=== PATIENT | male | born 1945 | race Caucasian/White ===

== ENCOUNTER → 2019-12-08 14:06 | Outpatient (BNVA) | payer MEDICARE, SELFPAY | PROVIDERS: Family Provider Family Medicine; PCP Family Medicine; Referring Provider Internal Medicine; Visit Provider Nurse Practitioner Family | DX: N40.1 Benign prostatic hyperplasia with lower urinary tract symptoms (principal) | CPT/HCPCS: 81001 ==

== ENCOUNTER → 2020-01-05 10:05 | Outpatient (BNVA) | payer MEDICARE, SELFPAY | PROVIDERS: Family Provider Family Medicine; PCP Internal Medicine; Visit Provider Urology | DX: N40.1 Benign prostatic hyperplasia with lower urinary tract symptoms (principal); R39.15 Urgency of urination | CPT/HCPCS: 81001 ==

== ENCOUNTER → 2020-03-02 10:16 | Outpatient (BNVA) | payer MEDICARE, SELFPAY | PROVIDERS: Family Provider Family Medicine; Visit Provider Urology | DX: N40.1 Benign prostatic hyperplasia with lower urinary tract symptoms (principal); R33.8 Other retention of urine | CPT/HCPCS: 81001 ==

== ENCOUNTER → 2020-03-09 10:12 | Outpatient (BNVA) | payer OTHER, SELFPAY | PROVIDERS: Family Provider Family Medicine; Visit Provider Urology | DX: Z11.59 Encounter for screening for other viral diseases (principal) | CPT/HCPCS: 87635 ==

== ENCOUNTER 2020-03-12 16:09 | Observation (INO) | payer OTHER, SELFPAY ==
[2020-03-09 11:28] VITALS: BMI 27.1
--- NOTE | 2020-03-09 11:35 | ECG_ITS ---
[facility] Test Date: 2020-03-09 Pat Name: Sai Medina Department: Room: Gender: Male Public Health Advisor: : [id number] Requested By: Lidia Kam Order Number: [id number] Darnell MD: Reggie Rogers M.D. Measurements Intervals [place] Rate: 46 P: 24 DC: 170 QRS: -22 QRSD: 105 T: 15 QT: 420 QTc: 369 Interpretive Statements SINUS BRADYCARDIA BORDERLINE LEFT AXIS DEVIATION [QRS AXIS < -20] MODERATE VOLTAGE CRITERIA FOR LVH, CONSIDER NORMAL VARIANT [MEETS CRITERIA IN ONE OF: R(aVL), S(V1), R(V5), R(V5/V6)+S(V1)] No previous ECG available for comparison Electronically Signed On 03-10-2020 21:37:15 CDT by Reggie Rogers M.D. [id number]
--- NOTE | 2020-03-09 11:59 | ANES.PREANE2 ---
Pre-Anesthetic Assessment Pre-Anesthetic Assessment: Height/Weight: Height 1.7 m Weight 78.471 kg Preop Diagnosis: Refractory BPH/obstruction Proposed Procedure: Operation Date: 03/12/20 13:00 Proposed Procedures p Transurethral Resection Of Prostate 93210 N40.1(Not Applicable) - Jj Taylor MD s Cystoscopy(Not Applicable) - Jj Taylor MD Familial anesthetic complications: none Social: Social History: No alcohol and No tobacco Exam: Pre-Anes Outpt Exam: alert, oriented x 3, clear to auscultation bilaterally and regular rate & rhythm Airway: Cervical ROM: WNL MP: 2 Dentition: Partials CV/HEM: CV/HEM: CAD (stent in 2001), HTN and PR Comments: can achieve 4 METS, can walk 2 miles on treadmill on 10% incline Neuropsych: Neuropsych: None reported Anesthetic Plan: ASA status: 3 Anesthesia: General Risk of > 500 ml blood loss (7ml/kg in children): No PFSH Anesthesia PFSH: Medical History ASHD (arteriosclerotic heart disease) BPH loc w urin obs/LUTS Chest pain Dyslipidemia Essential hypertension History of chronic prostatitis Remote episode with good response to single course of antibiotic therapy. Prostatic hypertrophy Urgency of urination Surgical History History of prostate biopsy 2007 negative pathology. Follow-up PSA is normal S/P angioplasty with stent Family History Mother , AT AGE 82 Diabetes CHF (congestive heart failure) Father , AT AGE 58 Suicide Other CAD (coronary artery disease) Social History Smoking and tobacco status: former smoker Alcohol intake: current Alcohol intake frequency: few times a week Alcohol type: beer Household members: spouse Marital status: service: Yes branch: [employer] branch details: 2 YEARS Current occupational status: retired Current occupation: [employer] History of recent travel: No Current gender identity: Male Anna/Nondenominational: Pentecostal Data Anesthesia Cardiac Studies: No Data to Display
[2020-03-12] VITALS (21 sets, daily range): BP systolic 95–167; BP diastolic 60–85; PULSE 41–74; RESP 14–19; TEMP 36.6–37.1; O2SAT 88–99
[2020-03-12] MEDS: sodium chloride 0.9% 1,000 ML 30 ML IV (11:43)
--- NOTE | 2020-03-12 12:09 | ANES.PREANE2 ---
Pre-Anesthetic Assessment Pre-Anesthetic Assessment: Height/Weight: Height 1.7 m Weight 78.471 kg Temp Pulse Resp BP Pulse Ox 97.9 F 53 L 18 167/85 97 03/12/20 11:30 03/12/20 11:30 03/12/20 11:30 03/12/20 11:30 03/12/20 11:30 Preop Diagnosis: Refractory BPH/obstruction Proposed Procedure: Operation Date: 03/12/20 13:00 Proposed Procedures p Transurethral Vaporization Of Prostate 35875 N40.1(Not Applicable) - Jj Taylor MD s Cystoscopy(Not Applicable) - Jj Taylor MD Was Beta Shanta taken within 24 hours: Yes Last intake: Intake Last Liquid Date 03/12/20 Last Liquid Time 06:00 Last Solid Date 03/12/20 Last Solid Time 00:00 Social: Social History: No alcohol and No tobacco Exam: Pre-Anes Outpt Exam: alert, oriented x 3, clear to auscultation bilaterally and regular rate & rhythm Airway: Submandibular: WNL Cervical ROM: WNL MP: 2 Dentition: Chipped Additional comments: Missing lower incisors Pulmonary: Pulmonary: None reported CV/HEM: CV/HEM: HTN : Comments: BPH Hepatic: Hepatic: None reported GI: GI: None reported Metabolic: Metabolic: Hyperlipidemia Musc/skel: Musc/skel: None reported Neuropsych: Neuropsych: None reported Anesthetic Plan: ASA status: 2 Anesthesia: General Meds/Allergies Current Medications: Current Medications Generic Name Dose Route Start Last Admin Trade Name Freq PRN Reason Stop Dose Admin Sodium Chloride 1,000 mls @ 30 ml s/hr 03/12/20 11:00 03/12/20 11:43 Sodium Chloride 0.9% IV 03/13/20 10:59 30 mls/hr .Q24H ASIA Administration PFSH Anesthesia PFSH: Medical History ASHD (arteriosclerotic heart disease) BPH loc w urin obs/LUTS Chest pain Dyslipidemia Essential hypertension History of chronic prostatitis Remote episode with good response to single course of antibiotic therapy. Prostatic hypertrophy Urgency of urination Surgical History History of prostate biopsy 2007 negative pathology. Follow-up PSA is normal S/P angioplasty with stent Family History Mother , AT AGE 82 Diabetes CHF (congestive heart failure) Father , AT AGE 58 Suicide Other CAD (coronary artery disease) Social History Smoking and tobacco status: former smoker Alcohol intake: current Alcohol intake frequency: few times a week Alcohol type: beer Household members: spouse Marital status: service: Yes branch: [employer] branch details: 2 YEARS Current occupational status: retired Current occupation: [employer] History of recent travel: No Current gender identity: Male Anna/Advent: Congregational Data Anesthesia Cardiac Studies: No Data to Display
--- NOTE | 2020-03-12 13:21 | P.HPUD_ITS ---
Surgery/Procedure H&P Update DATE OF PROCEDURE: March 12, 2020 DATE H&P PERFORMED: 03/02/20 H&P UPDATE INFORMATION: I have reviewed H&P completed within last 30 days, I have examined patient prior to procedure, No changes to prior documentation and H&P is in [facility] on date indicated PREOP DIAGNOSIS: Refractory BPH/obstruction PLANNED PROCEDURE: Operation Date: 03/12/20 13:00 Proposed Procedures p Transurethral Vaporization Of Prostate 64769 N40.1(Not Applicable) - Jj Taylor MD s Cystoscopy(Not Applicable) - Jj Taylor MD
--- NOTE | 2020-03-12 13:21 | P.OP_ITS ---
Operative Report Date of procedure: March 12, 2020 Pre-op Diagnosis: Refractory BPH/obstruction Post-op diagnosis: same Procedure Done: 1. Cystoscopy, transurethral vaporization of the prostate Surgeon: Claudia Anesthesia: General Estimated blood loss: 100 cc Urine output: Not measured Complications: None Findings: Lateral lobe hypertrophy bilaterally. Trabeculated bladder. Wide open at the completion of the procedure with hemostasis confirmed Condition: stable Disposition: PACU Brief History: Sai is a very pleasant 74-year-old white male with a longstanding history of BPH/obstructive symptoms on dual medical therapy with minimal improvement over time. Both irritative and obstructive symptoms. Emptied his bladder well and a trial of OAB medications was conducted but made it harder for him to void. Ultimately because of the impact on his quality of life he elected to proceed with TURP/TUVP in lieu of medical therapy long-term in the hope of significant improvement in his baseline voiding dynamics. Procedure: After routine preoperative evaluation examination and obtaining of informed consent he was taken to the operating suite on 03/12/2020 where general anesthesia was administered without difficulty after appropriate timeout was performed, SCDs confirmed to be functioning, preoperative antibiotics administered, beta-charis protocol confirmed. Prepped and draped in usual sterile fashion in dorsolithotomy position pain careful attention to avoiding pressure points. 21 Malaysian cystoscope with 30 degree lens was introduced into the urethral meatus and advanced into the bladder under videoscopy. Bladder was systematically examined showing lateral lobe hypertrophy, clearly identifiable ureteral orifices well away from the bladder neck, moderate to severe trabeculation. No mucosal abnormalities were identified. The urethra was then calibrated with Ethan sounds and easily accommodated 30 Malaysian. 2% lidocaine jelly was instilled into the urethra and a 25 Malaysian continuous flow resectoscope sheath with visual obturator in place was advanced into the bladder without difficulty. The supersect loop was utilized initially with the bipolar gyrus system to begin resection. The mucosa was very friable and a lot of time was spent cauterizing after the initial resection and for that reason the button probe was then employed and was utilized for the rest of the procedure. This change signi ficantly improved hemostasis during the procedure. Initial vaporization was begun at the 12 o'clock position from the bladder neck out to the verumontanum but not distal to it. It was then directed from the 12:00 to the 5 o'clock position in the same longitudinal extent down to surgical capsule. Resection was then directed from 12:00 to 7 o'clock position. He had a high bladder neck but no large lobe. A deep trough was made at the 6 o'clock position after confirming well away from the orifices. This was taken down to the circular fibers of the bladder neck and this helped Spring open the bladder neck substantially. The floor the prostate was then resected. All chips were evacuated from the bladder. There remained some adenomatous tissue at the level of the verumontanum and this was carefully vaporized as well. Meticulous hemostasis was confirmed. There was no specimen sent due to vaporization being the tool utilized. The orifices were confirmed uninvolved in the resection and the tissue distal to the verumontanum was as well undisturbed Bladder was drained with a 22 Malaysian three-way Bolton catheter with 30 cc placed in the balloon and light CBI initiated. Efflux was clear. Tolerated procedure well without complications and was awakened in the operating room and returned to the recovery room in stable condition. PLANS: 1. Observe overnight. Due to the friable nature of the tissue consideration for discharge with catheter will be made.
[2020-03-12] MEDS: levofloxacin-dextrose 5 % 500 MG/100 ML PREMIX 100 MG IV (13:22)
[2020-03-12] MEDS: lidocaine 2% Urojet 20 mL TOPICAL (14:07)
--- NOTE | 2020-03-12 15:32 | SUR.PHASEI ---
PT AWAKES TO VOICE, ORAL AIRWAY OUT PT QUICKLY BACK TO SLEEP DIDI STRAP TO LT THIGH WITH NS CBI INFUSING AT MOD RATE CLEAR URINE NOTED BENOIT BAG WITH LT PINK URINE
[2020-03-12] MEDS: fentaNYL 50 mcg/mL INJ 2mL IVP (15:37)
--- NOTE | 2020-03-12 16:02 | SUR.PHASEI ---
1552 PT RECOVERED AND OUT OF PHASE ONE, PT ALERT TAKING ICE CHIPS PT NOW HELD FOR BED ON FLOOR.
[2020-03-12] MEDS: lactated ringers 1,000 ML 50 ML IV (17:48)
[2020-03-12] MEDS: finasteride 5 mg Tablet PO (18:03)
[2020-03-12] MEDS: tamsulosin 0.4 mg Capsule PO (18:03)
[2020-03-12] MEDS: docusate sodium 100 mg Capsule PO (18:06)
[2020-03-12] MEDS: cetylpyridinium Lozenge 1 EACH MUCOUS MEM (18:06)
[2020-03-13] VITALS: BP 120/69; PULSE 72; RESP 16; TEMP 36.9; O2SAT 94
[2020-03-13 04:00] VITALS: BP 110/67; PULSE 70; RESP 16; TEMP 36.7; O2SAT 94
[2020-03-13 05:33] LABS: Basophils % 0.1 %; Hematocrit 40.4 % (42.0-52.0); Hemoglobin 13.8 g/dL (11.7-16.6); Lymphocytes # 0.9 10^3/uL (0.8-4.8); Lymphocytes % 6.7 %; Mean Corpuscular HGB Conc 34.2 g/dL (30.0-36.0); Mean Corpuscular Hemoglobin 30.4 pg (28.0-34.0); Mean Platelet Volume 11.2 fL (7.4-10.4); Monocytes # 0.6 10^3/uL (0.2-0.9); Monocytes % 4.1 %; Neutrophils # 12.42 10^3/uL (1.8-7.7); Neutrophils % 88.7 %; Nucleated Red Blood Cells % 0 %; Platelet Count 173 10^3/cmm (130-400); Red Blood Count 4.54 10^6/uL (4.1-5.3); Red Cell Distribution Width 12.2 % (12.1-15.1)
[2020-03-13 06:02] LABS: Anion Gap 15.1 (5-19); Blood Urea Nitrogen 15 mg/dL (8-23); Calcium 9.4 mg/dL (8.5-10.5); Carbon Dioxide 22 mmol/L (22-29); Chloride 105 mmol/L (98-107); Glucose 142 mg/dL (65-115); Osmolality Calculated 289 mOsm/kg (285-295); Potassium 4.1 mmol/L (3.5-5.1); Sodium 138 mmol/L (136-145)
--- NOTE | 2020-03-13 07:32 | P.PN_ITS ---
Subjective Subjective: Interval history: Urology follow-up, postoperative day #1: No new complaints. Denies any additional needs. Denies chest pain shortness of breath. Tolerating the catheter reasonably well. Has required CBI over the night and continues to this morning. Running at a moderate pace only. With that pace urine is pink. No manual irrigation has been required overnight. Based on current status of urine, the increased vascularity of the prostate demonstrated intraoperatively, and the size of the prostate I recommended continuing his catheter for now with CBI. I will reassess later today to make a decision whether to stop the CBI and potentially discharge with a catheter in place or continue as doing and change to inpatient status for an additional night of care. Labs reviewed. Hemoglobin is 14. Electrolytes normal. Medications: Reviewed: Yes Vitals/I&O/Wt Last Vital Signs Temp 98.1 F 03/13/20 04:00 Pulse 70 03/13/20 04:00 Resp 16 03/13/20 04:00 BP 110/67 03/13/20 04:00 Pulse Ox 94 03/13/20 04:00 03/12/20 03/13/20 03/13/20 22:59 06:59 14:59 Intake Total 1590 / 1690 480 / 480 Output Total 8550 / 8550 Balance -6960 / -6860 480 / 480 Physical Exam Const: COMMON NORMALS: no acute distress, alert and well nourished GENERAL APPEARANCE: well kempt and well developed ORIENTATION/CONSCIOUSNESS: not confused Resp: COMMON NORMALS: normal respiratory effort EFFORT & INSPECTION: No labored and No Actively coughing : OTHER: Urine is clear to pink with low flow CBI. Neuro: SENSORIUM/ORIENTATION: Yes alert Psych: COMMON NORMALS: mental status grossly normal APPEARANCE: Yes grossly normal and Yes well kempt ATTITUDE: Yes calm and Yes engaged Urinary Catheter Management^: 3-way Urethral CBI: Cath Placed During This Visit: yes Reason for Continuing Indwelling Catheter: Other Urinary Catheter Date of Insertion: 03/12/20 Urinary Catheter Time of Insertion: 15:02 Data : 03/13/20 04:31 03/13/20 04:31 A&P Assessment and plan (1) BPH loc w urin obs/LUTS: Status: Acute Additional A&P Information Postop hematuria. Still requiring CBI. Continue CBI today and reassess later for possible discharge with Bolton catheter in place. Attestations Medical Necessity Statement*: Still requiring CBI postop TURP. Coding Level of Care Code Acute Professional Poker Player for Haile Fwlauren Diagnoses BPH loc w urin obs/LUTS N40.1
[2020-03-13] MEDS: atorvastatin 40 mg Tablet PO (08:25)
[2020-03-13] MEDS: lisinopril 20 mg Tablet 40 MG PO (08:25)
[2020-03-13] MEDS: docusate sodium 100 mg Capsule PO (08:26)
[2020-03-13] MEDS: finasteride 5 mg Tablet PO (08:26)
[2020-03-13] MEDS: tamsulosin 0.4 mg Capsule PO (08:26)
[2020-03-13] MEDS: metoprolol succinate ER (24 HR) 25 mg Tablet PO (08:26)
[2020-03-13 11:29] VITALS: BP 136/71; PULSE 62; RESP 18; TEMP 37.1; O2SAT 96
--- NOTE | 2020-03-13 13:28 | PC.CHAP ---
Pastoral Care Encounter/Spiritual Assessment Type of Contact [] Declined application administrator visit [] Patient/Family/Request visit [] Outpatient visit [] Follow-up visit [] Physician referral [] Code/Alert [X] Routine visit [] Staff referral [] Actively dying [] Patient sleeping [] Family support [] [] Out of room [] Palliative care [] [] Receiving care in room [] Pre-surgical visit [] Trauma [] Long length of stay [] ICU visit [] Other: Relational/Emotional Strength [] Patient feels connected with others/family/visitors/staff [] Distress [] Loneliness/isolation [] Abandonment Spirituality of Patient [] Person of Anna [] Attends Mandaen of their Anna [] Believes in Prayer [] Reads Bible or Judaism materials [] There are Spiritual issues to be addressed Adding Machine Operator Interventions [] Prayer [] Active listening [] Non-anxious presence [] Spiritual/emotional support [] Crisis/trauma care [] Spiritual counseling [] Bereavement support [] Provided bereavement packet [] Provided Bible/devotional materials [] Provided toy/stuffed animal, coloring book to patient or family member [] Provided Communion [] Anointing/[place] [] Salvation [] Completed spiritual assessment [] Other: Impact on Illness or Injury [] Angry [] Fearful [] Anxious [] Often cries [] Exhaustion [] Unable to work [] Unable to attend taoism [] Unable to walk/stand [] Unable to read [] Unable to drive [] Unable to eat/drink [] Unable to sleep [] Unable to be with family [] Patient intubated [] Other: Summary Time spent with patient
[2020-03-13 14:40] VITALS: BP 117/67; PULSE 67; RESP 18; TEMP 37.1; O2SAT 95
--- NOTE | 2020-03-13 16:19 | PM.DCS ---
Discharge Providers Date of Admission: 03/12/20 16:09 Date of Discharge: March 13, 2020 Attending Provider at Admission: Jj Taylor MD Attending Provider at Discharge: Jj Taylor MD Primary Care Provider: [facility] Diagnoses at Discharge Discharge Diagnosis (1) BPH loc w urin obs/LUTS: Status: Acute Reason for Visit Reason for Visit: Benign prostate hyperplasia/LUTS Hospital Course Hospital Course: Admitted on the day of the procedure which went well. He had a huge prostate with mostly lateral lobe hypertrophy. Prostate was very vascular. Was put on observation status postop with CBI. CBI was slowly weaned off and his urine remained clear. He was felt to be a good candidate for further convalescence at home by the afternoon of postoperative day #1 and he was discharged with a Bolton catheter in place. Reviewed extensively the importance of not straining or lifting and to continue significant fluid intake to help avoid significant bleeding or clots. We will plan on a voiding trial on 03/16/2020 with [facility] instruction as well. Discharged in stable condition the care of his family Physical Exam Const: COMMON NORMALS: no acute distress, alert and well nourished GENERAL APPEARANCE: well kempt and well developed ORIENTATION/CONSCIOUSNESS: not confused Resp: COMMON NORMALS: normal respiratory effort EFFORT & INSPECTION: No labored and No Actively coughing Neuro: COMMON NORMALS: no focal motor deficits SENSORIUM/ORIENTATION: Yes alert Psych: COMMON NORMALS: mental status grossly normal APPEARANCE: Yes grossly normal and Yes well kempt ATTITUDE: Yes calm and Yes engaged Urinary Catheter Management^: 3-way Urethral CBI: Cath Placed During This Visit: yes Reason for Continuing Indwelling Catheter: Other Urinary Catheter Date of Insertion: 03/12/20 Urinary Catheter Time of Insertion: 15:02 Discharge Data Data Completed and Pending: Labs from last 24 hours 03/13/20 03/13/20 04:31 04:31 WBC 14.0 H RBC 4.54 Hgb 13.8 Hct 40.4 L MCV 89.0 MCH 30.4 MCHC 34.2 RDW 12.2 Plt Count 173 MPV 11.2 H Neut % (Auto) 88.7 Lymph % (Auto) 6.7 [place] % (Auto) 4.1 Eos % (Auto) 0.0 Baso % (Auto) 0.1 Neut # (Auto) 12.42 H Lymph # (Auto) 0.9 [place] # (Auto) 0.6 Eos # (Auto) 0.0 Baso # (Auto) 0.0 Nucleated RBC % (a uto) 0 Nucleated RBCs # 0.0 Sodium 138 Potassium 4.1 Chloride 105 Carbon Dioxide 22 Anion Gap 15.1 BUN 15 Creatinine 0.8 GFR Calculation Not Reportable Glucose 142 H Calculated Osmolal ity 289 Calcium 9.4 Vitals: Last Vital Signs Temp 98.8 F 03/13/20 14:40 Pulse 67 03/13/20 14:40 Resp 18 03/13/20 14:40 BP 117/67 03/13/20 14:40 Pulse Ox 95 03/13/20 14:40 Discharge Plan Discharge Patient Disposition: Home Condition: Stable Prescriptions: New levofloxacin 250 mg tablet 250 mg PO DAILY Qty: 5 RF: 0 Continued rosuvastatin [Crestor] 10 mg tablet 10 mg PO QDAY RF: 0 nitroglycerin [Nitrostat] 0.4 mg tablet, sublingual 0.4 mg SUBLINGUAL Q5M PRN (Reason: Chest Pain) RF: 0 lisinopril 40 mg tablet 40 mg PO QDAY RF: 0 metoprolol succinate [Toprol XL] 25 mg tablet extended release 24 hr 25 mg PO QDAY RF: 0 triamterene-hydrochlorothiazid 37.5-25 mg tablet 1 tab PO QAM RF: 0 finasteride 5 mg tablet 5 mg PO QDAY RF: 0 tamsulosin [Flomax] 0.4 mg capsule 0.4 mg PO BID Qty: 180 RF: 3 Held aspirin [Adult Low Dose Aspirin] 81 mg tablet,delayed release (DR/EC) 81 mg PO QDAY RF: 0 Hold Instructions: Resume on 03/26/20. Discharge Orders: Discharge Order (Routine); Ordered 03/13/20 Ordered By: Jj Taylor Referrals: Jj Taylor MD [Physician] - 03/16/20 (Voiding trial and a CIC instruction.) Discharge Diet: Usual diet Discharge Activity: Limit activity as instructed Activity Restrictions/Additional Instructions: 1. Please remain sedentary, drink a lot of fluid, and avoid straining until the catheter is been removed. 2. Call for any concerns or questions. I can be reached through the hospital slice plug cutter operator helper [phone] 3. We will plan on removing the catheter on Leticia afternoon. We will do a voiding trial and trained you on self-catheterization just in case he had difficulty voiding at home. Discharge Attestations Time Spent in Discharge Care*: less than 30 min Quality Metrics Clinical Quality Measures During this hospital stay, did patient experience: None Coding Level of Care Code Acute Cash Specialist for Taviag Fwd Diagnoses BPH loc w urin obs/LUTS N40.1
== END 2020-03-13 17:50 | disposition home or self-care (01) ==
LOC: MEDSURG 16:09
PROVIDERS: Admitting Provider Urology; Visit Provider Urology
PROC: 0VT08ZZ Resection of Prostate, Via Natural or Artificial Opening Endoscopic (ICD-10-PCS; CPT 52601; principal; 2020-03-12 13:00)
PROC: 0TJB8ZZ Inspection of Bladder, Via Natural or Artificial Opening Endoscopic (ICD-10-PCS; CPT 52000; 2020-03-12 13:00)
DX: N40.1 Benign prostatic hyperplasia with lower urinary tract symptoms (principal); N13.8 Other obstructive and reflux uropathy; I10 Essential (primary) hypertension; I25.2 Old myocardial infarction; E87.5 Hyperkalemia; Z95.5 Presence of coronary angioplasty implant and graft; Z82.49 Family history of ischemic heart disease and other diseases of the circulatory system; Z87.891 Personal history of nicotine dependence
CPT/HCPCS: 52601; 12345; 36415; 80048; 85025; 93005; G0378; J1100; J1956; J2405; J2704; J2710; J3010; J3490; J7030

== ENCOUNTER → 2020-07-15 10:57 | Outpatient (BNVA) | payer MEDICARE, SELFPAY | PROVIDERS: PCP Family Medicine; Visit Provider Nurse Practitioner Family | DX: N40.1 Benign prostatic hyperplasia with lower urinary tract symptoms (principal); N41.1 Chronic prostatitis | CPT/HCPCS: 81003 ==

== ENCOUNTER 2020-11-16 07:49 | Outpatient (CLI) | payer OTHER, MEDICARE, SELFPAY ==
--- NOTE | 2020-11-16 08:00 | CT_ITS ---
WS: [id number] CT ABDOMEN PELVIS TECHNIQUE: Noncontrast CT of the abdomen and contrast-enhanced CT of the abdomen and pelvis with ynes nal and sagittal reformatted images. CLINICAL INFORMATION: GROSS HEMATURIA COMPARISON: None. DLP: 2229.[address] scans at [facility] use at least one of these dose optimization techniques: automat ed exposure control; mA and/or kV adjustment per patient size (includes targeted exams where dose is matched to clinical indication); or iterative reconstruction. FINDINGS: Noncontrast kidneys are normal. No obstructing renal or ureteral calculi. Normal bilateral renal pare nchymal enhancement. Normal corticomedullary and nephrographic enhancement. Normal bilateral ureteral excretion with contrast visualized in the bladder. Small left renal cysts. No filling defects visual ized in the renal pelvis bilaterally. Markedly enlarged prostate measuring 7.0x6.0 cm with indentation on the bladder and associated bladde r wall thickening dorsally. Recommend correlation PSA. Small 11 mm cyst or cavernous hemangioma in the left hepatic lobe. Normal portal vein and splenic vei n. Normal gallbladder. Small esophageal hiatal hernia. Normal spleen. No evidence of small or large b owel obstruction. Lung bases are well aerated. Normal pancreatic enhancement. Normal caliber abdomina l aorta. Aortic calcification. No abdominal or pelvic lymphadenopathy. Prominent lymph node in the right dorsal perirectal soft tissues measuring 7.3 mm. Sigmoid diverticul osis. No evidence of acute diverticulitis. Fat-containing inguinal hernias bilaterally. Thickening of the seminal vesicles bilaterally. CT/CT abdomen pelvis wo/w [id number] IMPRESSION: 1. Markedly enlarged prostate measuring 7.0 x 6.0cm. Recommend correlation PSA . Thickening of the seminal vesicles bilaterally. 2. Enlarged prostate results in indentation on the dorsal bladder with bladder wall thickening. 3. Prominent perirectal lymph nodes largest measuring 7.3 mm in the perirecta l soft tissues. 4. Normal bilateral renal parenchymal enhancement. No hydronephrosis. 5. Small left renal cysts. 6. Normal ureteral excretion.
[2020-11-16 09:20] LABS: Blood Urea Nitrogen 22 mg/dL (8-23)
[2020-11-16] MEDS: iohexol 300 mg/mL 100 mL Btl IV (09:39)
== END 2020-11-16 07:50 | disposition home or self-care (01) ==
LOC: RAD 07:55
PROVIDERS: PCP Family Medicine; Visit Provider Urology
DX: R31.0 Gross hematuria (principal); Q61.02 Congenital multiple renal cysts; N40.0 Benign prostatic hyperplasia without lower urinary tract symptoms
CPT/HCPCS: 36415; 74178; 81003; 82565; 84520; 87086; 88112

== ENCOUNTER → 2021-02-10 14:27 | Outpatient (BNVA) | payer OTHER, SELFPAY | PROVIDERS: PCP Family Medicine; Visit Provider Urology | DX: N32.89 Other specified disorders of bladder (principal); N41.1 Chronic prostatitis; R31.0 Gross hematuria | CPT/HCPCS: 81003 ==

== ENCOUNTER → 2021-07-26 09:04 | Outpatient (BNVA) | payer OTHER, SELFPAY | PROVIDERS: PCP Family Medicine; Referring Provider Family Medicine; Visit Provider Surgery | DX: Z11.52 Encounter for screening for COVID-19 (principal) | CPT/HCPCS: 87635 ==

== ENCOUNTER 2021-07-27 09:43 | Day surgery (SDC) | payer OTHER, SELFPAY ==
[2021-07-26 11:44] VITALS: BMI 27.3
[2021-07-27] VITALS (7 sets, daily range): BP systolic 115–167; BP diastolic 71–101; PULSE 67–93; RESP 16–18; TEMP 36.2–36.5; O2SAT 90–99
--- NOTE | 2021-07-27 09:51 | P.ANESASSM_ITS ---
Pre-Anesthetic Assessment Height/Weight: Height 1.7 m Weight 79.379 kg Preop Diagnosis: diagnostic Operation Date: 07/27/21 11:30 Proposed Procedures p Colonoscopy 90323/z86.010(Not Applicable) - Nasir Singh MD Familial anesthetic complications: None Was Beta Shanta taken within 24 hours: Yes Was Clonidine taken within 24 hours: N/A Last intake: > 8 hrs Social No alcohol and No tobacco Exam alert, oriented x 3, clear to auscultation bilaterally and regular rate & rhythm Airway Mallampati: Class III Dentition: partials CV/HEM Coronary Artery Disease (stent in 2001) and Hypertension achieves > 4 METS w/out symptoms Metabolic Hyperlipidemia Anesthetic Plan ASA status: 3 Anesthesia: MAC Medications/Allergies Home Medications Medication Instructions Recorded Confirmed Last Taken Type aspirin 81 mg tablet,delayed 81 mg PO QDAY 06/23/19 07/26/21 03/02/20 History release (Adult Low Dose Aspirin) lisinopril 40 mg tablet 40 mg PO QDAY 06/23/19 07/26/21 03/11/20 History metoprolol succinate 25 mg 25 mg PO QDAY 06/23/19 07/26/21 03/12/20 History tablet,extended release 24 hr (Toprol XL) rosuvastatin 10 mg tablet (Crestor) 10 mg PO QDAY 06/23/19 07/26/21 03/11/20 History triamterene 37.5 1 tab PO QAM 06/23/19 07/26/21 03/11/20 History mg-hydrochlorothiazide 25 mg tablet doxycycline hyclate 100 mg tablet 100 mg PO BID 07/26/21 07/26/21 Unknown History Allergies Allergy/AdvReac Type Severity Reaction Status Date / Time Sulfa (Sulfonamide Allergy rash Verified 07/26/21 08:18 Antibiotics) [facility] Anesthesia Medical History (Updated 07/26/21 @ 08:49 by Nasir Singh MD) ASHD (arteriosclerotic heart disease) Bilateral inguinal hernia Chronic prostatitis Dyslipidemia Essential hypertension History of chronic prostatitis Remote episode with good response to single course of antibiotic therapy. Surgical History History of colonoscopy with polypectomy 2016 History of prostate biopsy 2007 negative pathology. Follow-up PSA is normal S/P angioplasty with stent Status post transurethral resection of prostate Family History Mother , AT AGE 82 Diabetes CHF (congestive heart failure) Father , AT AGE 58 Suicide Other CAD (coronary artery disease) Social History Smoking and tobacco status: former smoker Alcohol intake: current Alcohol intake frequency: few times a week Alcohol type: beer Household members: spouse Marital status: service: Yes branch: [employer] branch details: 2 YEARS Current occupational status: retired Current occupation: [employer] History of recent travel: No Current gender identity: Male Anna/Rastafari: Scientology Data Anesthesia Cardiac Studies: No Data to Display
--- NOTE | 2021-07-27 10:26 | W.PM.OPSUD ---
Surgery/Procedure H&P Update DATE OF PROCEDURE: July 27, 2021 DATE H&P PERFORMED: 07/26/21 H&P UPDATE INFORMATION: I have reviewed H&P completed within last 30 days, I have examined patient prior to procedure and No changes to prior documentation PREOP DIAGNOSIS: diagnostic PLANNED PROCEDURE: Operation Date: 07/27/21 11:30 Proposed Procedures p Colonoscopy [id number]/[id number](Not Applicable) - Nasir Singh MD
[2021-07-27] MEDS: sodium chloride 0.9% 1,000 ML 30 ML IV (10:32)
--- NOTE | 2021-07-27 11:40 | PC.NURSE ---
patient awake alert, respiration even and nonlabored. lung sounds clear throughout. saturations 94% on room air.
--- NOTE | 2021-07-27 11:58 | PC.NURSE ---
resting comfortably. no distress noted. respirations even and non-labored, o2 sats 94-98 on room air. at bedside.
--- NOTE | 2021-07-27 13:00 | ANE.PACU2 ---
Inpatient post-anesthesia follow up: Airway intact: Yes Vital signs: Temperature 97.2 F Pulse Rate 72 Respiratory Rate 18 Blood Pressure 151/86 Pulse Oximetry 95 Oxygen Delivery Me thod Room Air Oxygen Flow Rate 2 Fraction of Inspir ed Oxygen Hydration adequate: Yes Nausea and vomiting: No Pain level: 1 Mental status: Baseline Additional Comments: No resp distress, satting 95% on RA. Instructed patient to look for signs of aspiration pneumonia including fever, respiratory distress, malaise and to go to ER or call office if these signs develop.
== END 2021-07-27 13:00 | disposition home or self-care (01) ==
PROVIDERS: PCP Family Medicine; Visit Provider Surgery
PROC: 0DJD8ZZ Inspection of Lower Intestinal Tract, Via Natural or Artificial Opening Endoscopic (ICD-10-PCS; CPT 45378; principal; 2021-07-27 11:30)
DX: Z12.11 Encounter for screening for malignant neoplasm of colon (principal); Z86.010 Personal history of colon polyps; K57.30 Diverticulosis of large intestine without perforation or abscess without bleeding; K64.8 Other hemorrhoids; K40.20 Bilateral inguinal hernia, without obstruction or gangrene, not specified as recurrent; Z79.82 Long term (current) use of aspirin; I25.10 Atherosclerotic heart disease of native coronary artery without angina pectoris; E78.5 Hyperlipidemia, unspecified; I10 Essential (primary) hypertension; Z87.891 Personal history of nicotine dependence
CPT/HCPCS: 43235; 45378; J2704; J7030

== ENCOUNTER → 2021-08-11 10:30 | Outpatient (BNVA) | payer OTHER, SELFPAY | PROVIDERS: PCP Family Medicine; Visit Provider Urology | DX: N32.89 Other specified disorders of bladder (principal) | CPT/HCPCS: 81003 ==

== ENCOUNTER 2021-10-25 07:26 | Outpatient (CLI) | payer OTHER, SELFPAY ==
--- NOTE | 2021-10-25 07:43 | MR_ITS ---
WS: [id number] MRI HEAD WITH CONTRAST WITH ATTENTION TO THE INTERNAL AUDITORY CANALS TECHNIQUE: Sagittal T1, T2 axial, T2 axial flair, axial susceptibility weighted imaging, axial diffus ion weighted images, and coronal T2 images were obtained. Pre and post T1 axial and post T1 coronal i mages. ADC and FSPGR images. Post gadolinium images with attention to the internal auditory canals. A xial fiesta imaging. CLINICAL INFORMATION: UNSPECIFIED HEARING LOSS COMPARISON: None. FINDINGS: No evidence of restricted diffusion to suggest acute ischemia. Ventricular system and basal cisterns are patent. Mild small vessel changes. Mild parenchymal volume loss. Normal posterior fossa. Normal v ascular flow voids at the skull base. No extra axial fluid collections. No evidence of mass or mass e ffect. Paranasal sinuses are well aerated. Mild mucosal thickening in the maxillary sinuses with a fe w small retention cysts. Mastoid air cells are well aerated. Visualized orbits appear normal. No hemosiderin on susceptibly weighted images. Normal optic chiasm and pituitary infundibulum. Tempor al lobes and hippocampal formations are normal in appearance. Proximal 7th and 8th cranial nerves are normal. Normal trigeminal nerve root entry zones. Normal cavernous sinuses. Meckel's cave appears no rmal. No evidence of enhancing IAC or CP angle mass. No abnormal parenchymal enhancement. Normal dura l venous sinuses. MR/MR iac's wo/w con* [id number] IMPRESSION: 1. No evidence of restricted diffusion to suggest acute ischemia. 2. Minimal small vessel changes. Mild parenchymal volume loss. 3. Proximal 7th and 8th cranial nerves are normal. No evidence of enhancing IA C or CP angle mass. 4. Normal trigeminal nerve root entry zones. 5. Paranasal sinuses and mastoid air cells well aerated. Small retention cysts in the maxillary sinuses. 6. No hemosiderin on the susceptibly weighted images.
[2021-10-25] MEDS: gadobenate dimeglumine 20 mL vial IV (09:10)
== END 2021-10-25 07:27 | disposition home or self-care (01) ==
PROVIDERS: PCP Family Medicine; Visit Provider Specialist
DX: H93.A2 Pulsatile tinnitus, left ear (principal); H91.90 Unspecified hearing loss, unspecified ear; H90.3 Sensorineural hearing loss, bilateral; J34.1 Cyst and mucocele of nose and nasal sinus
CPT/HCPCS: 70553

== ENCOUNTER 2022-04-10 10:05 | Outpatient (CLI) | payer OTHER, SELFPAY | END 2022-04-10 10:06 | disposition home or self-care (01) | LOC: LAB 10:06 | PROVIDERS: PCP Family Medicine; Visit Provider Urology | DX: R97.20 Elevated prostate specific antigen [PSA] (principal) | CPT/HCPCS: 36415; 84153 ==

== ENCOUNTER → 2022-04-14 07:44 | Outpatient (BNVA) | payer OTHER, SELFPAY | PROVIDERS: PCP Family Medicine; Visit Provider Urology | DX: C64.9 Malignant neoplasm of unspecified kidney, except renal pelvis (principal); N42.1 Congestion and hemorrhage of prostate | CPT/HCPCS: 36415; 52000; 80053; 85025; 99214 ==

== ENCOUNTER 2022-04-19 13:40 | Observation (INO) | payer OTHER, SELFPAY ==
[2022-04-19] VITALS (8 sets, daily range): BP systolic 111–159; BP diastolic 65–86; PULSE 52–82; RESP 13–22; TEMP 36.5–36.9; O2SAT 95–99; BMI 28.8
--- NOTE | 2022-04-19 06:21 | W.PM.OPSUD ---
Surgery/Procedure H&P Update DATE OF PROCEDURE: April 19, 2022 DATE H&P PERFORMED: 04/14/22 H&P UPDATE INFORMATION: I have reviewed H&P completed within last 30 days, I have examined patient prior to procedure, No changes to prior documentation and H&P is in [facility] [place] on date indicated PREOP DIAGNOSIS: diagnostic PLANNED PROCEDURE: Operation Date: 04/19/22 10:40 Proposed Procedures p CYSTOLITHALOPAXY TRANSURETHRAL RESECTION OF PROSTATE 01335 [id number],N42.1,N32.89(Not Applicable) - Jj Taylor MD s Cystoscopy(Not Applicable) - Jj Taylor MD s Transurethral Resection Of Prostate(Not Applicable) - Jj Taylor MD
--- NOTE | 2022-04-19 10:07 | P.ANESASSM_ITS ---
Pre-Anesthetic Assessment Height/Weight: Height 1.7 m Weight 79.379 kg Temp Pulse Resp BP Pulse Ox O2 Del Method 97.7 F 52 L 16 159/86 99 04/19/22 09:44 04/19/22 09:44 04/19/22 09:44 04/19/22 09:44 04/19/22 09:44 04/19/22 09:50 Preop Diagnosis: Bladder stones, BPH Operation Date: 04/19/22 10:40 Proposed Procedures p CYSTOLITHALOPAXY TRANSURETHRAL RESECTION OF PROSTATE 52743 45022,N42.1,N32.89(Not Applicable) - Jj Taylor MD s Cystoscopy(Not Applicable) - Jj Taylor MD s Transurethral Resection Of Prostate(Not Applicable) - Jj Taylor MD Familial anesthetic complications: mpme Was Beta Shanta taken within 24 hours: Yes Was Clonidine taken within 24 hours: N/A Last intake: Intake Last Liquid Date 04/18/22 Last Liquid Time 19:00 Last Solid Date 04/18/22 Last Solid Time 19:00 Social No alcohol and No tobacco Exam alert, oriented x 3, clear to auscultation bilaterally and regular rate & rhythm Airway Mallampati: Class II Dentition: full CV/HEM Coronary Artery Disease (stent > 1 year ago) Metabolic Hyperlipidemia Anesthetic Plan ASA status: 3 Anesthesia: General Risk of > 500 ml blood loss (7ml/kg in children): No Medications/Allergies Home Medications Medication Instructions Recorded Confirmed Last Taken Type aspirin 81 mg tablet,delayed 81 mg PO QDAY 06/23/19 04/18/22 04/13/22 History release (Adult Low Dose Aspirin) lisinopril 40 mg tablet 40 mg PO QDAY 06/23/19 04/18/22 04/18/22 20:00 History metoprolol succinate 25 mg 25 mg PO QDAY 06/23/19 04/18/22 04/19/22 07:00 History tablet,extended release 24 hr (Toprol XL) rosuvastatin 10 mg tablet (Crestor) 10 mg PO QDAY 06/23/19 04/18/22 04/18/22 20:00 History triamterene 37.5 1 tab PO QAM 06/23/19 04/18/22 04/19/22 07:00 History mg-hydrochlorothiazide 25 mg tablet (Maxzide-25mg) doxycycline hyclate 100 mg tablet 100 mg PO BID 04/18/22 04/18/22 04/18/22 19:00 History finasteride 5 mg PO DAILY 04/18/22 04/18/22 04/18/22 20:00 History Allergies Allergy/AdvReac Type Severity Reaction Status Date / Time Sulfa (Sulfonamide Allergy rash Verified 04/14/22 07:55 Antibiotics) [facility] Anesthesia Medical History ASHD (arteriosclerotic heart disease) Bilateral inguinal hernia Chronic prostatitis Dyslipidemia Essential hypertension History of chronic prostatitis Remote episode with good response to single course of antibiotic therapy. Surgical History History of colonoscopy with polypectomy 2016 History of prostate biopsy 2007 negative pathology. Follow-up PSA is normal S/P angioplasty with stent Status post colonoscopy (07/27/21) diverticulosis, internal hemorrhoids Status post transurethral resection of prostate Family History Mother , AT AGE 82 Diabetes CHF (congestive heart failure) Father , AT AGE 58 Suicide Other CAD (coronary artery disease) Social History Smoking and tobacco status: former smoker Alcohol intake: current Alcohol intake frequency: few times a week Alcohol type: beer Household members: spouse Marital status: service: Yes branch: [employer] branch details: 2 YEARS Current occupational status: retired History of recent travel: No Current gender identity: Male Anna/Lutheran: Mormon Data Anesthesia Cardiac Studies: No Data to Display
[2022-04-19] MEDS: sodium chloride 0.9% 1,000 ML 30 ML IV (10:31)
[2022-04-19 10:55] LABS: Anion Gap 13.1 (5-19); Blood Urea Nitrogen 19 mg/dL (8-23); Calcium 9.7 mg/dL (8.5-10.5); Carbon Dioxide 27 mmol/L (22-29); Chloride 102 mmol/L (98-107); Glucose 101 mg/dL (65-115); Osmolality Calculated 288 mOsm/kg (285-295); Potassium 4.1 mmol/L (3.5-5.1); Sodium 138 mmol/L (136-145)
[2022-04-19] MEDS: levofloxacin-dextrose 5 % 500 MG/100 ML PREMIX 100 MG IV (11:07)
--- NOTE | 2022-04-19 12:00 | PM.MISC ---
Miscellaneous Note Purpose of Documentation: airway manipulation Note: Routine induction and intubation attempted for elective procedure in the operating room. Grade II view obtained with direct laryngoscopy. 7.5 ETT attempted to pass but significant resistance encountered and unable to pass through glottis to appropriate depth. Bougie passed through the ETT in order to exchange for smaller size ETT and also encountered resistance. ETT and bougie removed. Bag/mask ventilation performed without difficulty. Attempted direct laryngoscopy with passage of bougie, successful, passed 7.0 ETT over bougie without difficulty. Placement confirmed. STUDENT SUPPORT COUNSELOR and MDA passed iberoptic bronchoscope via ETT for airway examination - no adventitious findings including trauma, stenosis, masses, or anatomical abnormalities that would have contributed to resistance.
[2022-04-19] MEDS: lidocaine 2% Urojet 20 mL TOPICAL (12:24)
--- NOTE | 2022-04-19 13:29 | P.OP_ITS ---
Operative Report Date of procedure: April 19, 2022 Pre-op diagnosis: Bladder stones, BPH Post-op diagnosis: Bladder stones, BPH Procedure done: 1. Cystolitholapaxy approximately 2.5 -3 cm 2. Cystoscopy, transurethral resection/vaporization of the prostate Implants: Bolton catheter Specimens removed/disposition: Stone fragments Prostatic chips Pathology: Prostate chips/bladder-prostate stones Surgeon: Claudia Estimated blood loss: Less than 100 cc Urine output: Not measured Complications: Small posterior floor mucosal tear with cystolitholapaxy. Not full-thickness. Not actively bleeding at the completion of the procedure. Findings: Anesthesia: General Condition: Stable Disposition: PACU Intraoperative findings: * Moderate regrowth of prostatic tissue with multiple dystrophic calcifications at the bladder neck and prostatic tissue. * Brief History: Sai is a very pleasant 77-year-old white male with a longstanding history of BPH/obstruction as well as chronic prostatitis. He was on chronic antibiotics for some period of time related to the prostatitis with improvement in prostatitis symptoms but had progressive bladder outlet obstruction secondary to BPH and ultimately in March 2020 he underwent cystoscopy transurethral section of prostate gland with large amount of tissue resected. Initially did very well but had recurrent chronic prostatitis type symptoms over time that responded to antibiotics. More recently has developed increasing discomfort and had been identified and cystoscopy in November 2020 to have multiple areas of dystrophic calcification. These were treated conservatively initially with anticipation of sloughing and passage but that did not happen. Recent cystoscopy showed very friable tissue with a lot of regrowth as well as increased dystrophic calcifications that would likely explain the symptoms of discomfort with voiding. He was offered continued conservative management versus cystolitholapaxy and further transurethral section of regrowth of tissue. Ultimately chose the latter. Procedure: After routine preoperative evaluation examination and obtaining of informed consent he was taken to the operating suite on 04/19/2022 where general anesthesia was administered without difficulty after appropriate timeout was performed, SCDs confirmed to be functioning, preoperative antibiotics administered, beta-charis protocol confirmed. Prepped and draped in usual sterile fashion in dorsolithotomy position paying careful attention to avoiding pressure points. 21 Barbadian cystoscope with 30 degree lens was introduced into the urethra meatus and into the bladder under videoscopy. The bladder was systematically examined. No mucosal abnormalities were identified other than bladder neck dystrophic calcifications and friable prostatic tissue. The urethra was calibrated with [place] sounds and easily accommodated 30 Barbadian. 2% lidocaine jelly was instilled into the urethra than the 25 Barbadian continuous- flow resectoscope sheath with visual obturator in place was advanced into the bladder without difficulty. The gyrus bipolar system was utilized for resection first with a super loop and then with the button probe. He had a large number of dystrophic calcifications on both lateral lobes of the prostate. The largest was about 2-1/2 cm. They were peeled from the prostatic and bladder neck mucosa and dropped into the bladder. Resection was begun with a super loop at the bladder neck with circumferential resection paying careful attention to avoiding onto the trigone. Both orifices were easily identified and maintained visualized throughout the bladder neck resection. The left lateral lobe was then resected from the 1 o'clock position down to the 5 o'clock position. There was a lot of regrowth of adenomatous tissue. Same was then performed on the opposite side in the same longitudinal extent and depth. There remained a large amount of regrowth of adenomatous tissue at the verumontanum and this was carefully trimmed away. The button probe was utilized intermittently for vaporization and hemostasis. At the completion of the resection which was about 40% of the entire tissue and vaporization which was about 60% of the entire tissue the hemostasis was confirmed to be excellent. Chips were evacuated from the bladder. A 365 ?m thulium superpulse laser fiber was utilized to fragment the stones in the bladder into small pieces. One of the fragments actually pushed through the mucosa into the superficial bladder wall. There was no full-thickness but there was some bleeding on the edges and this was carefully cauterized. Chips were evacuated from the bladder and this area was inspected. There was no evidence of any extravasation. His abdomen remained soft and hemostasis was good. Final inspection revealed prostatic fossa wide open, orifices not involved in the resection, no bleeding from the mucosal tear, no resection distal to the verumontanum. Because of the posterior location of the mucosal injury approximately 2 cm to 4 cm cephalad to the trigone a catheter guide was used to pass a 24 Barbadian three- way Bolton catheter to direct the catheter tip up well away from the area of concern. The catheter was confirmed to be functioning well and the balloon inflated with 30 cc. Manual irrigation showed the catheter is working perfectly. Light CBI was continued and the efflux remained clear. Bladder was palpated. There is no evidence of extravasation or fluid collection. He tolerated procedure well. Awakened in the operating room and returned to the care of room in stable condition PLANS: 1. Admit to observation status. 2. Run CBI at a slow rate. Wean off as quickly as possible. Manually irrigate as needed. 3. He will be discharged with Bolton catheter in place and maintained for about a week to allow the area of the posterior bladder wall to heal completely before testing for void.
--- NOTE | 2022-04-19 14:46 | ANE.PACU2 ---
Inpatient post-anesthesia follow up: Airway intact: Yes Vital signs: Temperature 98.5 F Pulse Rate 64 Respiratory Rate 15 Blood Pressure 111/77 Pulse Oximetry 96 Oxygen Delivery Me thod Room Air Oxygen Flow Rate 6 Fraction of Inspir ed Oxygen Hydration adequate: Yes Nausea and vomiting: No Pain level: 1 Mental status: Baseline
[2022-04-19] MEDS: metoprolol succinate ER (24 HR) 25 mg Tablet PO (15:45)
[2022-04-19] MEDS: dextrose 5%-ns + KCl 20 20 MEQ/1,000 ML BAG 100 MEQ IV (15:45)
[2022-04-19 16:41] LABS: Glucose Point of Care 147 mg/dL (70-110)
[2022-04-19] MEDS: doxycycline 100 mg Tablet PO (17:15)
[2022-04-19] MEDS: docusate sodium 100 mg Capsule PO (17:15)
[2022-04-19 20:55] LABS: Glucose Point of Care 308 mg/dL (70-110)
[2022-04-19] MEDS: atorvastatin 40 mg Tablet 20 MG PO (21:21)
[2022-04-20] VITALS: BP 121/76; PULSE 78; RESP 21; TEMP 36.8; O2SAT 96
[2022-04-20] MEDS: dextrose 5%-ns + KCl 20 20 MEQ/1,000 ML BAG 100 MEQ IV ×2 (01:55→09:36)
[2022-04-20] MEDS: ondansetron 2 mg/ML SDV 2 mL 4 MG IVP (02:08)
[2022-04-20 03:24] VITALS: BP 135/56; PULSE 76; RESP 20; TEMP 36.8; O2SAT 97
[2022-04-20] MEDS: famotidine 20 mg Tablet PO (04:28)
--- NOTE | 2022-04-20 06:52 | PC.NURSE ---
CBI shift summary: The patient has maintained a very light pink to clear drainage in the dubon. Denies any pain. No distention in the bladder noted. CBI is at a slow drip and draining clear for the majority.
[2022-04-20 06:55] LABS: Glucose Point of Care 152 mg/dL (70-110)
[2022-04-20] MEDS: metoprolol succinate ER (24 HR) 25 mg Tablet PO (08:41)
[2022-04-20] MEDS: doxycycline 100 mg Tablet PO (08:42)
[2022-04-20] MEDS: lisinopril 20 mg Tablet 40 MG PO (08:42)
[2022-04-20] MEDS: finasteride 5 mg Tablet PO (08:42)
[2022-04-20] MEDS: docusate sodium 100 mg Capsule PO (08:42)
[2022-04-20 11:33] LABS: Glucose Point of Care 194 mg/dL (70-110)
--- NOTE | 2022-04-20 11:58 | PC.NURSE ---
Patient resting in bed with family bedside. Dr. Taylor plans to DC this afternoon as long as all safety requirements are met and urine remains clear.
--- NOTE | 2022-04-20 13:14 | PC.CHAP ---
Pastoral Care Encounter/Spiritual Assessment Type of Contact [] Declined taxicab driver visit [] Patient/Family/Request visit [] Outpatient visit [] Follow-up visit [] Physician referral [] Code/Alert [x] Routine visit [] Staff referral [] Actively dying [] Patient sleeping [] Family support [] [] Out of room [] Palliative care [] [x] Receiving care in room [] Pre-surgical visit [] Trauma [] Long length of stay [] ICU visit [] Other: Relational/Emotional Strength [x] Patient feels connected with others/family/visitors/staff [] Distress [] Loneliness/isolation [] Abandonment Spirituality of Patient [x] Person of Anna [] Attends Islam of their Anna [x] Believes in Prayer [] Reads Bible or Presybeterian materials [] There are Spiritual issues to be addressed Energy Systems Engineer Interventions [x] Prayer [x] Active listening [x] Non-anxious presence [x] Spiritual/emotional support [] Crisis/trauma care [x] Spiritual counseling [] Bereavement support [] Provided bereavement packet [] Provided Bible/devotional materials [] Provided toy/stuffed animal, coloring book to patient or family member [] Provided Communion [] Anointing/[place]ell [] Salvation [x] Completed spiritual assessment [] Other: Impact on Illness or Injury [] Angry [] Fearful [] Anxious [] Often cries [] Exhaustion [] Unable to work [] Unable to attend uatsdin [] Unable to walk/stand [] Unable to read [] Unable to drive [] Unable to eat/drink [] Unable to sleep [] Unable to be with family [] Patient intubated [] Other: Summary dealing protate other related health problems feels good well be pretty g home Time spent with patient 10 mins
--- NOTE | 2022-04-20 15:15 | PM.DCS ---
Discharge Providers Date of Admission: 04/19/22 13:40 Date of Discharge: April 20, 2022 Attending Provider at Admission: Jj Taylor MD Attending Provider at Discharge: Jj Taylor MD Primary Care Provider: Carla Lee MD Diagnoses at Discharge Discharge Diagnosis (1) Prostatic hemorrhage: Status: Acute (2) Dystrophic calcification of bladder: Status: Acute (3) BPH w urinary obs/LUTS: Status: Acute Reason for Visit Reason for Visit: Recurrent gross hematuria/BPH/bladder stones Brief History: Mr. Medina is about 2 years post TURP for progressive bladder Trae obstruction. Also has a history of chronic prostatitis which historically has been quite symptomatic. Post TURP he voided well but over time started having increasing discomfort and was ultimately discovered to have a significant amount of dystrophic calcifications on his prostatic lobes. Initially he wanted to forego any further treatment but over time the symptoms increased to the point where he was pretty debilitated and for that reason he was admitted now for a cystolitholapaxy and transurethral resection/vaporization of regrowth of friable prostate tissue. Hospital Course Hospital Course He was admitted on the day of the procedure which went well. He was found to have a lot of residual/regrowth of adenomatous tissue along with multiple large sheets of dystrophic calcification along the prostate and bladder neck. A large amount of prostate tissue was resected and vaporized and the bladder/prostatic stones were lasered and crushed. He did have a small mucosal tear on the posterior floor of the bladder during the cystolitholapaxy portion but it was not full-thickness and required only some mild fulguration on the edges for complete hemostasis. A Bolton catheter was left in place postop and maintained throughout his hospital stay and discharge. The plan was to leave the catheter in for about a week in order to facilitate healing of both the prostatic fossa as well as the mucosal tear. Postoperatively his urine remained clear and his CBI was completely weaned off. He did well and was discharged on postop day #1 in stable condition Bolton catheter draining clear urine without CBI. Physical Exam Const: COMMON NORMALS: no acute distress, alert and well nourished GENERAL APPEARANCE: well kempt and well developed ORIENTATION/CONSCIOUSNESS: not confused Resp: COMMON NORMALS: normal respiratory effort EFFORT & INSPECTION: No labored and No Actively coughing GI: OTHER: Abdomen is soft. No distention. Nontender : OTHER: Urine was clear. Normal genital exam. Neuro: COMMON NORMALS: no focal motor deficits SENSORIUM/ORIENTATION: Yes alert Psych: COMMON NORMALS: mental status grossly normal APPEARANCE: Yes grossly normal and Yes well kempt ATTITUDE: Yes calm and Yes engaged Urinary Catheter Management: 3-way Urethral CBI: Cath Placed During This Visit: yes Reason for Continuing Indwelling Catheter: Other Urinary Catheter Date of Insertion: 04/19/22 Urinary Catheter Time of Insertion: 13:20 Discharge Data Studies Completed and Pending Completed Studies During Hospitalization Category Date Time Status Pathology: Surgical [PTH] Routine Pth 04/19/22 13:41 Completed Laboratory Results Sodium 138 mmol/L (136-145) 04/19/22 10:20 Potassium 4.1 mmol/L (3.5-5.1) 04/19/22 10:20 Chloride 102 mmol/L (98-107) 04/19/22 10:20 Carbon Dioxide 27 mmol/L (22-29) 04/19/22 10:20 Anion Gap 13.1 (5-19) 04/19/22 10:20 BUN 19 mg/dL (8-23) 04/19/22 10:20 Creatinine 1.0 mg/dL (0.7-1.2) 04/19/22 10:20 GFR Calculation Not Reportable 04/19/22 10:20 Glucose 101 mg/dL (65-115) 04/19/22 10:20 POC Glucose 194 mg/dL (70-110) H 04/20/22 11:29 Calculated Osmolality 288 mOsm/kg (285-295) 04/19/22 10:20 Calcium 9.7 mg/dL (8.5-10.5) 04/19/22 10:20 Vitals Last Vital Signs Temp 98.2 F 04/20/22 16:06 Pulse 76 04/20/22 16:06 Resp 20 H 04/20/22 16:06 BP 135/56 04/20/22 16:06 Pulse Ox 97 04/20/22 03:24 O2 Del Method 04/20/22 03:24 O2 Flow Rate 6 04/19/22 13:35 Discharge Plan Discharge Patient Disposition: Home Condition: Stable Prescriptions: Continued rosuvastatin [Crestor] 10 mg tablet 10 mg PO QDAY lisinopril 40 mg tablet 40 mg PO QDAY metoprolol succinate [Toprol XL] 25 mg tablet extended release 24 hr 25 mg PO QDAY triamterene-hydrochlorothiazid [Maxzide-25mg] 37.5-25 mg tablet 1 tab PO QAM doxycycline hyclate 100 mg tablet 100 mg PO BID Rx Instructions: TAKE 1 TABLET BY MOUTH TWICE DAILY finasteride 5 mg PO DAILY Held aspirin [Adult Low Dose Aspirin] 81 mg tablet,delayed release (DR/EC) 81 mg PO QDAY Hold Instructions: Resume on 04/27/22. Discharge Orders: Discharge Order (Routine); Ordered 04/20/22 Ordered By: Jj Taylor Referrals: Jj Taylor MD [Physician] - ([facility]rology Clinic to call you with this appointment. If you do not hear from /about this appointment please call office ) Discharge Diet: Advance as tolerated Discharge Activity: Limit activity as instructed Patient Instructions: Cystoscopy (DC), Transurethral Prostatectomy (DC), Opioid Safety, Post Anesthesia Care Patient's Health Concerns: 1. We will plan on leaving the catheter in until about a week from surgery. We will take it out in the clinic and do a voiding trial. 2. It is good to drink a lot of fluids to keep your urine is clear as possible. Please let me know if your catheter is having trouble functioning because of blood clots etc. 3. Will be very important to avoid any real activity including lifting >10 pounds. That is not much. You need to heal more before restore resuming your usual activities. 4. Continue the DOXYCYCLINE at home. Discharge Attestations Time Spent in Discharge Care*: less than 30 min Quality Metrics Clinical Quality Measures [ No reported AMI, CVA or VTE this stay] Coding Level of Care Code Acute Chg FW DC note Diagnoses Prostatic hemorrhage N42.1 Dystrophic calcification of bladder N32.89 BPH w urinary obs/LUTS N40.1; N13.8
[2022-04-20 16:06] VITALS: BP 135/56; PULSE 76; RESP 20; TEMP 36.8
--- NOTE | 2022-04-20 16:09 | PC.NURSE ---
All IV's removed. Discharge instructions and restrictions given and explained to patient. Verbalized understanding. Bolton left in place per Dr. Taylor and leg bag sent with patient.
--- NOTE | 2022-04-20 16:42 | PC.SOCIAL ---
Discharge info and op note [facility].
--- NOTE | 2022-04-20 16:43 | PC.NURSE ---
Patient left via w/c at 1645
== END 2022-04-20 16:43 | disposition home or self-care (01) ==
LOC: MEDSURG 22:46
PROVIDERS: Anesthesiology; Admitting Provider Urology; PCP Family Medicine; Visit Provider Urology
PROC: 0TCB8ZZ Extirpation of Matter from Bladder, Via Natural or Artificial Opening Endoscopic (ICD-10-PCS; CPT 52317; principal; 2022-04-19 10:30)
PROC: 0TJB8ZZ Inspection of Bladder, Via Natural or Artificial Opening Endoscopic (ICD-10-PCS; CPT 52000; 2022-04-19 10:30)
PROC: 0VT08ZZ Resection of Prostate, Via Natural or Artificial Opening Endoscopic (ICD-10-PCS; CPT 52601; 2022-04-19 10:30)
DX: N21.0 Calculus in bladder (principal); N40.1 Benign prostatic hyperplasia with lower urinary tract symptoms; N13.8 Other obstructive and reflux uropathy; I25.10 Atherosclerotic heart disease of native coronary artery without angina pectoris; Z95.5 Presence of coronary angioplasty implant and graft; E78.5 Hyperlipidemia, unspecified; Z79.82 Long term (current) use of aspirin; I10 Essential (primary) hypertension; Z87.891 Personal history of nicotine dependence
CPT/HCPCS: 52317; 52601; 36415; 36416; 80048; 82962; 88305; G0378; J1100; J1885; J1956; J2405; J3010; J3490; J7030

== ENCOUNTER → 2022-04-26 09:38 | Outpatient (BNVA) | payer OTHER, SELFPAY | PROVIDERS: PCP Family Medicine; Visit Provider Urology | DX: N40.1 Benign prostatic hyperplasia with lower urinary tract symptoms (principal); N13.8 Other obstructive and reflux uropathy; N21.0 Calculus in bladder | CPT/HCPCS: 99024 ==

== ENCOUNTER → 2022-06-27 15:08 | Outpatient (BNVA) | payer OTHER, SELFPAY | PROVIDERS: PCP Family Medicine; Visit Provider Urology | DX: N40.1 Benign prostatic hyperplasia with lower urinary tract symptoms (principal); N13.8 Other obstructive and reflux uropathy; Z98.890 Other specified postprocedural states | CPT/HCPCS: 51798; 99024 ==

== ENCOUNTER 2022-09-11 09:11 | Outpatient (CLI) | payer OTHER, SELFPAY ==
--- NOTE | 2022-09-11 09:32 | USCV_ITS ---
Sai Medina Age: 77 Gender: M : 1945 Exam Date: 09/11/2022 10:17 Ordering Phys: Carla Lee MD Technologist: Victor Manuel Jesus [place] [facility] [place] HISTORY: Diameter (cm) AP x Transverse x Length Velocity (cm/s) Waveform Prox Aorta: 2.59 x 2.75 x 60.30 Mid Aorta: 2.14 x 2.31 x 75.80 Distal Aorta: 1.77 x 1.84 x 85.90 Right Iliac Prox: 1.20 x 1.59 x 103.30 Left Iliac Prox: 1.20 x 1.35 x 100.80 Stent Prox Landing x x Aneurysmal Sac Max x x Lt Lat Sac Dim Rt Lat Sac Dim Stent Dist Landing x x Right Iliac Stent x x Left Iliac Stent x x Right Renal Art Left Renal Art FINDINGS: CONCLUSIONS No evidence of abdominal aortic or bilateral iliac aneurysm. Minimal arteriovascular disease within the abdominal aorta. Gianfranco Hill MD (Electronically Signed) Final Date: 11 September 2022 15:30 S
== END 2022-09-11 09:12 | disposition home or self-care (01) ==
LOC: RAD 09:14
PROVIDERS: PCP Family Medicine; Visit Provider Family Medicine
DX: Z13.6 Encounter for screening for cardiovascular disorders (principal)
CPT/HCPCS: 76706

== ENCOUNTER → 2022-09-27 13:09 | Outpatient (BNVA) | payer OTHER, SELFPAY | PROVIDERS: PCP Family Medicine; Visit Provider Urology | DX: N21.0 Calculus in bladder (principal); N40.1 Benign prostatic hyperplasia with lower urinary tract symptoms; N13.8 Other obstructive and reflux uropathy | CPT/HCPCS: 51798; 52000; 81003 ==

== ENCOUNTER 2023-09-03 12:18 | Emergency (ER) | payer OTHER, SELFPAY ==
--- NOTE | 2023-09-03 12:32 | CT_ITS ---
WS: [id number] Examination: CT head wo con* [id number] Reason for Exam: trauma/syncope Date: September 03, 2023 Comparison: None. DLP: 1810.[address] scans at [facility] use at least one of these dose optimization techniques: automated e xposure control; mA and/or kV adjustment per patient size (includes targeted exams where dose is matc hed to clinical indication); or iterative reconstruction. Findings: There is soft tissue swelling and hematoma identified in the right periorbital area. No depressed sku ll fracture is identified. The visualized paranasal sinuses are well-aerated. The ventricles and sulci are within normal limits for the patient's age. There is no midline shift. T here is no hydrocephalus. There is mildly asymmetric prominent extra-axial subarachnoid space on the left. There is no intracranial hemorrhage or hematoma. There is a metallic BB ejecting over the anterior mid orbit. Impression: There is no intracranial hemorrhage or hematoma.
--- NOTE | 2023-09-03 12:32 | XR_ITS ---
WS: [id number] Examination: XR chest 1V portable [id number] Reason for Exam: fall, syncope Date: September 03, 2023 Comparison: December 25, 2013 Findings: Heart is not enlarged. The mediastinum not widened. The left ricki is mildly prominent but unchanged There is no pulmonary edema or pleural effusion. There is no dense consolidation. Impression: No acute lung process is identified.
--- NOTE | 2023-09-03 12:32 | CT_ITS ---
WS: [id number] CT FACIAL BONES HISTORY: fall/syncope/R superior orbital lac TECHNIQUE: Images obtained from the supraorbital location through the mandible. Soft tissue and bone windows are reviewed. Coronal and sagittal reformats have also been submitted. DLP: 1810.[address] scans at [facility] use at least one of these dose optimization techniques: automated e xposure control; mA and/or kV adjustment per patient size (includes targeted exams where dose is matc hed to clinical indication); or iterative reconstruction. COMPARISON: None available. Extensive soft tissue edema centered over the RIGHT orbit and globe extending over the frontal region . There is no post septal hematoma. The orbits and globes are intact. No fracture is identified. The nasal bones and zygomatic arches are normal. Mandibular condyles are normal. Upper cervical spine is negative for fracture. C3 retrolisthesis by 2 mm. Incidental note made is noted of a 3 mm metallic foreign body positioned directly over the LEFT globe . Mild mucoperiosteal thickening in the maxillary sinuses. LEFT mandibular molar dental caries. IMPRESSION: 1. No facial bone fracture. 2. Large soft tissue hematoma centered over the RIGHT orbit and globe. 3. Incidental note is made of a metallic foreign body projecting over the LEFT globe.
--- NOTE | 2023-09-03 12:33 | ED_ITS ---
HPI - Syncope 2 General: Chief Complaint: Fall Stated Complaint: fall, laceration to rt eye Time Seen by Provider: 09/03/23 12:23 Source: patient and EMS Mode of arrival: EMS Limitations: no limitations History of Present Illness: Patient is a very nice 78-year-old male with a history of hypertension and BPH here via EMS following a syncopal episode. Patient states he was seated at a desk paying bills when he felt dizzy and lightheaded. He states the next thing he knew he was waking up on the floor. He states he struck his right eyebrow and sustained a laceration. Last tetanus is unknown. Patient denies chest pain, shortness of breath, palpitations. He has no known cardiac or pulmonary history. He has not been ill recently. Vital signs are stable upon arrival. Patient states he began to feel better during the ambulance ride and feels pretty much back to normal during my assessment. No previous syncopal episodes. MD complaint: loss of consciousness Onset (ago): hour(s) -: second(s) Prodromal symptoms: lightheaded Witnessed: No Context: other (seated at a desk) Injuries sustained associated with event: face (R eyebrow lac) Associated symptoms: Reports lightheadedness; Deny abdominal pain, chest pain, fever(s), headache(s) or nausea Treatments prior to arrival: IV fluids Review of Systems 2 Const: Denies: fever(s) or chills Eyes: Reports: other (R eyebrow lac); Denies: change in vision, blurry vision, blind spots, photophobia, floaters or seeing flashes Card: Reports: lightheadedness and syncope; Denies: chest pain, palpitations, irregular heart rhythm, edema, swelling of feet/ankles, pre-syncope, dyspnea on exertion, orthopnea, leg pain with exertion or acrocyanosis Resp: Denies: dyspnea, productive cough, non-productive cough or pain on inspiration GI: Denies: abdominal pain, nausea, vomiting, heartburn or diarrhea : Denies: difficulty urinating or dysuria Musc: Denies: neck pain, back pain, extremity pain, extremity swelling or joint pain Skin/Breast: Denies: rash Neuro: Denies: headache(s), numbness in extremities, weakness in extremities, sensory changes, lack of coordination, frequent falls, confusion, behavioral changes, Slurred speech present, difficulty communicating thoughts or seizure- like activity PFSH ED 2 PFSH: Medical History Bilateral inguinal hernia Chronic prostatitis History of chronic prostatitis Remote episode with good response to single course of antibiotic therapy. ASHD (arteriosclerotic heart disease) Dyslipidemia Essential hypertension Surgical History Status post colonoscopy (07/27/21) diverticulosis, internal hemorrhoids History of colonoscopy with polypectomy 2017 Status post transurethral resection of prostate History of prostate biopsy 2007 negative pathology. Follow-up PSA is normal S/P angioplasty with stent Family History Mother , AT AGE 82 Diabetes Congestive heart failure (CHF) Father , AT AGE 58 Suicide Other CAD (coronary artery disease) Social History Smoking and tobacco/nicotine status: former use of tobacco/nicotine Alcohol intake: current Alcohol intake frequency: few times a week Alcohol type: beer Substance/Drug Use: never Household members: spouse Marital status: service: Yes branch: [employer] branch details: 2 YEARS Current occupational status: retired Current gender identity: Male Anna/Spiritism: Faith Physical Exam 2 Const: COMMON NORMALS: no acute distress, average body habitus, patient oriented x3, no limitations, healthy appearing, alert and well nourished G ENERAL APPEARANCE: cooperative ORIENTATION/CONSCIOUSNESS: Yes awake, Yes oriented to person, Yes oriented to place and Yes oriented to time HENMT: COMMON NORMALS: normocephalic, atraumatic and Normal external nose present HEAD & SCALP: normal to inspection, normocephalic and atraumatic F STEVIE & SINUS: other (R periorbital ecchymosis with small 1.25cm laceration; no globe injury) FACE & SINUS IMAGES: 1. small laceration NOSE: Normal external nose present MOUTH: Normal oral and palatal mucosa present and lip normal Eye: COMMON NORMALS: Equal, round and reactive pupils present and EOMs intact bilaterally GENERAL EYE: appearance normal, both eyes and all related structures and normal light reflex PUPIL: Yes Equal, round and reactive pupils present DIRECT OPHTHALMOSCOPY: Yes normal light reflex Neck/C-Spine: COMMON NORMALS: full ROM, no lymphadenopathy, supple and no meningeal signs Chest: COMMONS NORMALS: normal inspection of the chest Resp: COMMON NORMALS: normal respiratory effort and clear to auscultation bilaterally AUSCULTATION: clear to auscultation bilaterally Cardio: COMMON NORMALS: regular rate and regular rhythm RATE: regular rate RHYTHM: regular rhythm GI: COMMON NORMALS: Normal to inspection, nondistended, normoactive bowel sounds present, Soft to palpation, non-tender, No hepatosplenomegaly present and no masses PALPATION: Yes Soft to palpation and Yes No hepatosplenomegaly present Back/Pelvis: COMMON NORMALS: thoracic and lumbar spine normal to inspection Extremity: COMMON NORMALS: normal to inspection GENERAL: Yes normal exam except as noted Neuro: TAL COMA SCALE: document GCS findings Tal coma scale eye opening: Spontaneous Tal coma scale verbal response: Orientated Lincoln coma scale motor response: Obey commands Tal coma scale total score: 15 COMMON NORMALS: patient oriented x3, CN's II-XII intact bilaterally, moves all extremities, no focal motor deficits, no sensory deficits noted and gait normal SENSORIUM/ORIENTATION: Yes alert, Yes oriented to person, Yes oriented to place and Yes oriented to time MENINGEAL SIGNS: Yes no meningeal signs Skin: COMMON NORMALS: no rashes or lesions noted GENERAL SKIN EXAM: no rashes or lesions noted TRAUMA: laceration (R eyebrow) Procedures Laceration Laceration 1: Site: face Side (If applicable): right Size (cm): 1.25 Description: linear Depth: simple, single layer Local Anesthetic: lidocaine 1% and with epi Amount of anesthesia used (mL): 1.0 Pre-repair: wound explored and irrigated extensively Skin layer closed with: nylon Size (cm): 5-0 Number of sutures: 3 Technique: simple, interrupted Course 2 Vital Signs: Vital signs: Vital Signs Temperature 98.0 F 09/03/23 12:39 Pulse Rate 56 L 09/03/23 15:09 Respiratory Rate 16 09/03/23 12:39 Blood Pressure 138/85 09/03/23 15:09 Pulse Oximetry 95 09/03/23 15:09 Oxygen Delivery Me thod Room Air 09/03/23 14:23 MDM - Syncope Medical Decision Making Patient is a nice 78-year-old male here following a syncopal episode. Patient states he feels normal upon arrival to the emergency department. His vital signs are stable. Blood work here overall is unremarkable. His baseline and repeat troponins are normal. EKG is unremarkable/unchanged from previous. CXR is normal. CT scan imaging of head, cervical spine, facial bones is unremarkable. Laceration was irrigated and repaired as documented. Tetanus was updated. UA clear. He was able to ambulate here without difficulty or assistance. Patient be stable for discharge with recommendations to follow-up with primary care later this week. Return to ED precautions given. Medical Records I reviewed the patient's medical records. Lab Data I reviewed the patient's lab results. 09/03/23 12:15 09/03/23 12:15 Laboratory Results WBC 8.68 10^3/uL (3.29-11.43) 09/03/23 12:15 RBC 4.85 10^6/uL (3.85-5.65) 09/03/23 12:15 Hgb 14.90 g/dL (11.27-16.99) 09/03/23 12:15 Hct 43.0 % (37-53) 09/03/23 12:15 MCV 88.7 fl (82-101) 09/03/23 12:15 MCH 30.7 pg (27-33) 09/03/23 12:15 MCHC 34.7 g/dL (30-55) 09/03/23 12:15 RDW 13.0 % (12.1-15.1) 09/03/23 12:15 Plt Count 173 10^3/cmm (157-399) 09/03/23 12:15 MPV 11.2 fL (7.4-10.4) H 09/03/23 12:15 Neut % (Auto) 74.1 % 09/03/23 12:15 Lymph % (Auto) 18.1 % 09/03/23 12:15 Mower % (Auto) 6.1 % 09/03/23 12:15 Eos % (Auto) 0.8 % 09/03/23 12:15 Baso % (Auto) 0.6 % 09/03/23 12:15 Neut # (Auto) 6.43 10^3/uL (1.8-7.7) 09/03/23 12:15 Lymph # (Auto) 1.6 10^3/uL (0.8-4.8) 09/03/23 12:15 Mower # (Auto) 0.5 10^3/uL (0.2-0.9) 09/03/23 12:15 Eos # (Auto) 0.1 10^3/uL (0.0-0.8) 09/03/23 12:15 Baso # (Auto) 0.1 10^3/uL (0.0-0.1) 09/03/23 12:15 Nucleated RBC % (auto) 0 % 09/03/23 12:15 Nucleated RBCs # 0.0 /100WBC 09/03/23 12:15 Sodium 139 mmol/L (136-145) 09/03/23 12:15 Potassium 4.1 mmol/L (3.5-5.1) 09/03/23 12:15 Chloride 102 mmol/L (98-107) 09/03/23 12:15 Carbon Dioxide 25 mmol/L (22-29) 09/03/23 12:15 Anion Gap 16.1 (5-19) 09/03/23 12:15 BUN 20 mg/dL (8-23) 09/03/23 12:15 Creatinine 0.9 mg/dL (0.7-1.2) 09/03/23 12:15 GFR Calculation Not Reportable 09/03/23 12:15 Glucose 107 mg/dL (65-115) 09/03/23 12:15 Calculated Osmolality 291 mOsm/kg (285-295) 09/03/23 12:15 Calcium 9.8 mg/dL (8.5-10.5) 09/03/23 12:15 Total Bilirubin 0.8 mg/dL (0.15-1.2) 09/03/23 12:15 AST 20 U/L (0-40) 09/03/23 12:15 ALT 26 U/L (0-41) 09/03/23 12:15 Alkaline Phosphatase 42 U/L (40-130) 09/03/23 12:15 Troponin T Baseline 7 ng/L (0-15) 09/03/23 12:15 Troponin T 120 Minute 8.51 ng/L (0-15) 09/03/23 13:56 Delta Troponin T 1.51 ABS# (0-10) 09/03/23 13:56 Total Protein 7.2 g/dL (6.6-8.7) 09/03/23 12:15 Albumin 4.6 g/dL (3.5-5.2) 09/03/23 12:15 Globulin 2.6 g/dL (1.3-4.6) 09/03/23 12:15 Urine Color Yellow (Yellow) 09/03/23 14:14 Urine Appearance Clear (CLEAR) 09/03/23 14:14 Urine pH 7 (5-7) 09/03/23 14:14 Ur Specific Bronson 1.010 (1.005-1.030) 09/03/23 14:14 Urine Protein Neg (Negative) 09/03/23 14:14 Urine Glucose (UA) Norm (Normal) 09/03/23 14:14 Urine Ketones Negative (Negative) 09/03/23 14:14 Urine Blood Neg (Negative) 09/03/23 14:14 Urine Nitrate Negative (Negative) 09/03/23 14:14 Urine Bilirubin Neg (Negative) 09/03/23 14:14 Urine Urobilinogen Norm mg/dL (Negative) 09/03/23 14:14 Ur Leukocyte Esterase Negative (Negative) 09/03/23 14:14 All radiology interpretation(s) finalized by discharge Discharge Plan Discharge Patient Disposition: Home Clinical Impression: Syncope Qualifiers: Syncope type: unspecified Qualified Code(s): R55 - Syncope and collapse Laceration of eyebrow, right Qualifiers: Encounter type: initial encounter Qualified Code(s): S01.111A - Laceration without foreign body of right eyelid and periocular area, initial encounter Condition: Stable Prescriptions: No Action aspirin [Adult Low Dose Aspirin] 81 mg tablet,delayed release (DR/EC) 81 mg PO QDAY Hold Instructions: Resume on 04/27/22. lisinopril 40 mg tablet 40 mg PO QDAY triamterene-hydrochlorothiazid [Maxzide-25mg] 37.5-25 mg tablet 1 tab PO QAM finasteride 5 mg tablet 5 mg PO QDAY Qty: 90 3RF rosuvastatin 20 mg Tablet 10 mg PO QPM Discharge Orders: Discharge ED (Routine); Ordered 09/03/23 Ordered By: Anahi Villegas Referrals: Carla Lee MD [Primary Care Provider] - Coding Level of Care Code ED Clinical Trainer for Haile Taveras
--- NOTE | 2023-09-03 12:33 | ECG_ITS ---
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 Measurements Intervals [place] Rate: 57 P: 47 [place]: 168 QRS: -28 QRSD: 100 T: 32 QT: 411 QTc: 402 Interpretive Statements SINUS BRADYCARDIA BORDERLINE LEFT AXIS DEVIATION [QRS AXIS < -20] MINIMAL VOLTAGE CRITERIA FOR LVH, CONSIDER NORMAL VARIANT [MEETS CRITERIA IN ONE OF: R(aVL), S(V1), R(V5), R(V5/V6)+S(V1)] Compared to ECG 03/09/2020 11:45:09 No significant changes Electronically Signed On 09-03-2023 16:30:27 CDT by Reggie Rogers M.D. [email or web address]
[2023-09-03 12:39] VITALS: BP 132/78; PULSE 62; RESP 16; TEMP 36.7; O2SAT 96; BMI 27.6
[2023-09-03 12:53] VITALS: BP 143/80; PULSE 61; O2SAT 97
[2023-09-03 12:55] LABS: Basophils # 0.1 10^3/uL (0.0-0.1); Basophils % 0.6 %; Eosinophils # 0.1 10^3/uL (0.0-0.8); Eosinophils % 0.8 %; Lymphocytes # 1.6 10^3/uL (0.8-4.8); Lymphocytes % 18.1 %; Mean Corpuscular HGB Conc 34.7 g/dL (30-55); Mean Corpuscular Hemoglobin 30.7 pg (27-33); Mean Corpuscular Volume 88.7 fl (82-101); Mean Platelet Volume 11.2 fL (7.4-10.4); Monocytes # 0.5 10^3/uL (0.2-0.9); Monocytes % 6.1 %; Neutrophils # 6.43 10^3/uL (1.8-7.7); Neutrophils % 74.1 %; Nucleated Red Blood Cells % 0 %; Platelet Count 173 10^3/cmm (157-399); Red Blood Count 4.85 10^6/uL (3.85-5.65); White Blood Count 8.68 10^3/uL (3.29-11.43)
[2023-09-03 13:16] LABS: Troponin(5th) Baseline 7 ng/L (0-15)
[2023-09-03 13:20] LABS: Alanine Aminotransferase 26 U/L (0-41); Albumin Level 4.6 g/dL (3.5-5.2); Alkaline Phosphatase 42 U/L (40-130); Anion Gap 16.1 (5-19); Aspartate Amino Transferase 20 U/L (0-40); Blood Urea Nitrogen 20 mg/dL (8-23); Calcium 9.8 mg/dL (8.5-10.5); Carbon Dioxide 25 mmol/L (22-29); Chloride 102 mmol/L (98-107); Creatinine Clr Calc Pharmacy 70.7089; Globulin 2.6 g/dL (1.3-4.6); Glucose 107 mg/dL (65-115); Osmolality Calculated 291 mOsm/kg (285-295); Potassium 4.1 mmol/L (3.5-5.1); Sodium 139 mmol/L (136-145); Total Bilirubin 0.8 mg/dL (0.15-1.2); Total Protein 7.2 g/dL (6.6-8.7)
[2023-09-03] MEDS: tetanus-dipt-pertussis 0.5 mL SDV IM (13:22)
[2023-09-03 14:23] VITALS: BP 117/87; PULSE 63; O2SAT 98
[2023-09-03 14:24] LABS: Troponin 5 2HR 8.51 ng/L (0-15); Troponin 5 2HR Delta 1.51 ABS# (0-10)
[2023-09-03 14:59] LABS: Add Urine Microscopic? NO; Charge for UA Resulting for Rev
[2023-09-03 15:01] LABS: Bilirubin Urine Neg (Negative); Blood Urine Neg (Negative); Glucose Urine UA Norm (Normal); Ketones Urine Negative (Negative); Leukocyte Esterase Urine Negative (Negative); Nitrate Urine Negative (Negative); Protein Urine Neg (Negative); Urine Appearance Clear (CLEAR); Urine Color Yellow (Yellow); Urobilinogen Urine Norm (Negative); pH Urine 7 (5-7)
[2023-09-03 15:09] VITALS: BP 138/85; PULSE 56; O2SAT 95
== END 2023-09-03 15:11 | disposition home or self-care (01) ==
PROVIDERS: Emergency Provider Physician Assistant; PCP Family Medicine
DX: R55 Syncope and collapse (principal); S01.111A Laceration without foreign body of right eyelid and periocular area, initial encounter; Z79.82 Long term (current) use of aspirin; E78.5 Hyperlipidemia, unspecified; I10 Essential (primary) hypertension; Z87.891 Personal history of nicotine dependence; W07.XXXA Fall from chair, initial encounter; Z23 Encounter for immunization
CPT/HCPCS: 12011; 36415; 70450; 70486; 71045; 80053; 81003; 84484; 85025; 90471; 90715; 93005; 99285

== ENCOUNTER → 2024-10-28 09:57 | Outpatient (BNVA) | payer OTHER, SELFPAY | PROVIDERS: PCP Family Medicine; Visit Provider Internal Medicine Cardiovascular Disease | DX: R07.9 Chest pain, unspecified (principal); I25.10 Atherosclerotic heart disease of native coronary artery without angina pectoris; E78.5 Hyperlipidemia, unspecified; R00.1 Bradycardia, unspecified; I10 Essential (primary) hypertension; Z87.891 Personal history of nicotine dependence | CPT/HCPCS: 93005; 99214 ==